=== PATIENT | male | born 1930 | race African-American/Black ===

== ENCOUNTER 2017-08-04 19:53 | Emergency (ER) | payer OTHER ==
[~2017-08-04] VITALS: Ht 180.3 cm; Wt 88.0 kg
[2017-08-04 22:15] VITALS: BP 159/85
== END 2017-08-04 22:30 | disposition home or self-care (01) ==
LOC: ER 19:53
DX: S01.81XA Laceration without foreign body of other part of head, initial encounter (principal); E11.9 Type 2 diabetes mellitus without complications; V49.9XXA Car occupant (driver) (passenger) injured in unspecified traffic accident, initial encounter; Y93.89 Activity, other specified; Y92.89 Other specified places as the place of occurrence of the external cause; Y99.8 Other external cause status
CPT/HCPCS: 70450; 99284